=== PATIENT | male | born 1955 | race African-American/Black ===

== ENCOUNTER 2016-12-07 15:48 | Emergency (ER) | payer MEDICARE, MEDICAID ==
[~2016-12-07] VITALS: Ht 172.7 cm; Wt 72.6 kg
[~2016-12-07 15:48] MED LIST: ATENOLOL100 MG ORAL; HYDROCHLOROTHIA25 MG ORAL; HYDROCODON-ACE1 EA13 ORAL; HYDROCODON-ACE1 EA16 ORAL; LEXAPRO10 MG ORAL; NORCO 5-325 TA1 EACH ORAL; NORVIR100 MG ORAL; REYATAZ150 MG ORAL; TRICOR54 MG ORAL; UNK BP MED
[2016-12-07 15:56] VITALS: BP 129/83
[2016-12-07] MEDS ORDERED: TdaP Vaccine 0.5ml Syr IM ONE (16:30)
[2016-12-07] MEDS ORDERED: Methocarbamol 750mg tab ORAL ONE (16:30)
[2016-12-07] MEDS ORDERED: NORCO 5-325 TA1 EAC1 ORAL (17:48)
[2016-12-07] MEDS ORDERED: IBUPROFEN600 MG ORAL (17:48)
[2016-12-07 17:54] VITALS: BP 121/81
[2016-12-07] MEDS ORDERED: NORCO 10-325 T1 EACH ORAL (18:06)
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
--- NOTE | 2016-12-08 10:39 | Diagnostic Imaging Report ---
Indication: Pain Findings: 3 views of the right elbow were obtained. No acute fractures, malalignment, erosions or periostitis are identified. Bone mineralization is within normal limits. Soft tissues are unremarkable. Impression: Negative examination of the elbow.
--- NOTE | 2016-12-08 10:39 | Diagnostic Imaging Report ---
Indication: Pain Findings: 3 views of the left elbow were obtained. No acute fractures, malalignment, erosions or periostitis are identified. Bone mineralization is within normal limits. Soft tissues are unremarkable. Impression: Negative examination of the elbow.
== END 2016-12-07 18:10 | disposition home or self-care (01) ==
LOC: EMR 17:45
DX: S52.022A Displaced fracture of olecranon process without intraarticular extension of left ulna, initial encounter for closed fracture (principal); S41.111A Laceration without foreign body of right upper arm, initial encounter; Y08.89XA Assault by other specified means, initial encounter; Y92.9 Unspecified place or not applicable; I10 Essential (primary) hypertension; Z23 Encounter for immunization
CPT/HCPCS: 29105; 90471; 90715

== ENCOUNTER 2017-05-13 07:49 | Emergency (ER) | payer MEDICARE, MEDICAID ==
[~2017-05-13] VITALS: Ht 172.7 cm; Wt 72.6 kg
[~2017-05-13 07:49] MED LIST changes: +IBUPROFEN600 MG ORAL; +NORCO 10-325 T1 EACH ORAL; +NORCO 5-325 TA1 EAC1 ORAL
[2017-05-13 08:11] VITALS: BP 151/92
[2017-05-13] MEDS ORDERED: PERMETHRIN60 GM TOPIC (08:26)
[2017-05-13 08:33] VITALS: BP 151/92
--- NOTE | 2017-05-13 13:44 | Emergency Room Report ---
History of Present Illness General Chief Complaint: Skin Rash/Abscess Source: Patient Present Illness HPI 62-year-old male presents to ED for evaluation. Patient states he is a rash on his hands the last several days. It is very itchy. Denies any pain. Patient states his girlfriend has the same rash and was told it is scabies. Was prescribed permethrin and states symptoms are resolving. Patient is here for treatment. No aggravating relieving factors. Denies any other associated symptoms Allergies: Coded Allergies: No Known Allergies (Unverified , 05/27/13) Patient History Past Medical History: HTN Past Surgical History: none Pertinent Family History: none Social History: Denies: smoking, alcohol use, drug use Immunizations: UTD Reviewed Nursing Documentation: PMH: Agreed, PSxH: Agreed Nursing Documentation-PMH Hx Cardiac Problems: No - hiv + Hx Hypertension: Yes Hx Pacemaker: No Hx Asthma: No Hx COPD: No Hx Diabetes: No Hx Cancer: No Hx Gastrointestinal Problems: No Hx Dialysis: No Hx Neurological Problems: No Hx Cerebrovascular Accident: No Hx Seizures: No Review of Systems All Other Systems: negative except mentioned in HPI Physical Exam Vital Signs Date Time Temp Pulse Resp B/P (MAP) Pulse Ox O2 Delivery O2 Flow Rate FiO2 05/13/17 07:55 98.1 56 16 151/92 98 Room Air Sp02 EP Interpretation: reviewed, normal General Appearance: no apparent distress, alert, GCS 15, non-toxic Head: normocephalic, atraumatic Eyes: bilateral eye normal inspection, bilateral eye PERRL ENT: hearing grossly normal, normal pharynx, no angioedema, normal voice Neck: full range of motion, supple/symm/no masses Respiratory: chest non-tender, lungs clear, normal breath sounds, speaking full sentences Cardiovascular #1: regular rate, rhythm, no edema Cardiovascular #2: 2+ carotid (R), 2+ carotid (L), 2+ radial (R), 2+ radial (L) , 2+ dorsalis pedis (R), 2+ dorsalis pedis (L) Gastrointestinal: normal bowel sounds, non tender, soft, non-distended, no guarding, no rebound Rectal: deferred Genitourinary: normal inspection, no CVA tenderness Musculoskeletal: back normal, gait/station normal, normal range of motion, non- tender Neurologic: alert, oriented x3, responsive, motor strength/tone normal, sensory intact, speech normal Psychiatric: judgement/insight normal, memory normal, mood/affect normal, no suicidal/homicidal ideation Reflexes: 3+ bicep (R), 3+ bicep (L), 3+ tricep (R), 3+ tricep (L), 3+ knee (R) , 3+ knee (L) Skin: normal color, no rash, warm/dry, well hydrated Lymphatic: no adenopathy Medical Decision Making Diagnostic Impression: Primary Impression: Scabies ER Course Hospital Course 62-year-old male presents to ED with rash to hands Differential diagnoses include: Cellulitis, dermatitis, insect bite, abscess Clinical course Patient placed on stretcher. After initial history, physical exam reveals an elderly male in no acute distress. On exam there are of the linear excoriations noted to bilateral hands. Consistent with a history of scabies provided by the patient We will treat with permethrin. Patient is requesting refill of his pain medication. States he has significant arthritis in both knees. Usually takes [place] one to 2 tablets daily. Review CURES and patient has multiple prescriptions filled on a monthly basis. I explained that I cannot provide any additional medication and he needs to followup with his PMD and/or pain management. Patient understands Diagnosis - scabies stable and discharged to home with prescription for Permethin. Instructed to followup with PMD. Instructed return to ED if symptoms recur or worsen Last Vital Signs Date Time Temp Pulse Resp B/P (MAP) Pulse Ox O2 Delivery O2 Flow Rate FiO2 05/13/17 08:33 56 19 151/92 98 Room Air 05/13/17 08:11 98.1 Status: improved Disposition: HOME, SELF-CARE Condition: Stable Scripts Permethrin* (ELIMITE*) 60 Gm Cream..g. 1 APPLIC TOPIC ONCE, #1 TUBE 0 Refills Apply cream from head to toe; leave on for 8-14 hours before washing off with water Prov: ILANA BARNES M.D. 05/13/17 Patient Instructions: Contact Precautions, [id number] ILANA BARNES M.D. May 13, 2017 13:44
== END 2017-05-13 08:39 | disposition home or self-care (01) ==
LOC: EMR 08:20
DX: B86 Scabies (principal); I10 Essential (primary) hypertension
CPT/HCPCS: 99283

== ENCOUNTER 2017-05-24 01:28 | Emergency (ER) | payer MEDICARE, MEDICAID ==
[~2017-05-24] VITALS: Ht 172.7 cm; Wt 72.6 kg
[~2017-05-24 01:28] MED LIST changes: +PERMETHRIN60 GM TOPIC
[2017-05-24] MEDS ORDERED: Morphine Sulfate 4mg/ml Inj IVP ONE (02:30)
[2017-05-24] MEDS ORDERED: Famotidine 20 MG/ 2ML VIAL IVP ONE (02:30)
[2017-05-24] MEDS ORDERED: Tubing IV Cassette IV ONE (03:06)
[2017-05-24 03:21] LABS: APPEARANCE,URINE CLEAR; KETONES,URINE NEGATIVE (NEGATIVE); LEUKOCYTE ESTERASE ,URINE NEGATIVE (NEGATIVE); NITRITE,URINE NEGATIVE (NEGATIVE); PH,URINE 5 (4.5-8.0); PROTEIN,URINE NEGATIVE (NEGATIVE); UROBILINOGEN,URINE NORMAL MG/DL (0.0-1.0)
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
[2017-05-24 03:26] LABS: PROTHROMBIN TIME 10.6 SEC (9.30-11.50)
[2017-05-24 03:34] LABS: ALBUMIN/GLOBULIN RATIO 1.3 (1.0-2.7); CALCIUM 10.2 mg/dL (8.6-10.2); CREATININE 1.6 mg/dL (0.7-1.2); GLOMERULAR FILTRATION RATE 53.3 mL/min (>60); POTASSIUM 3.7 mEQ/L (3.4-4.9); TOTAL PROTEIN 8.1 g/dL (6.6-8.7)
[2017-05-24 03:35] LABS: BASOPHILS % (AUTO) 0.8 % (0.0-2.0); EOSINOPHILS % (AUTO) 0.7 % (0.0-3.0); LYMPHOCYTES % (AUTO) 20.6 % (20.0-45.0); MEAN CORPUSCULAR HEMOGLOBIN 33.7 PG (27.0-31.0); MEAN CORPUSCULAR HGB CONC 34.1 G/DL (32.0-36.0); MEAN CORPUSCULAR VOLUME 99 FL (80-99); MEAN PLATELET VOLUME 8.2 FL (6.5-10.1); MONOCYTES % (AUTO) 7.6 % (1.0-10.0); NEUTROPHILS % (AUTO) 70.3 % (45.0-75.0); PLATELET COUNT 233 K/UL (150-450); RED BLOOD COUNT 4.38 M/UL (4.70-6.10); RED CELL DISTRIBUTION WIDTH 11.6 % (11.6-14.8); WHITE BLOOD COUNT 10.3 K/UL (4.8-10.8)
[2017-05-24 04:03] VITALS: BP 157/96
[2017-05-24] MEDS ORDERED: TRAMADOL HCL50 MG ORAL (05:41)
[2017-05-24] MEDS ORDERED: ZOFRAN ODT4 MG ORAL (05:41)
[2017-05-24] MEDS ORDERED: PEPCID20 MG ORAL (05:41)
[2017-05-24 05:50] LABS: BILIRUBIN,DIRECT 0.2 mg/dL (0.1-0.3)
[2017-05-24 05:56] LABS: TROPONIN I < 0.30 ng/mL (<=0.30)
[2017-05-24 06:08] VITALS: BP 151/74
[2017-05-24 06:09] VITALS: BP 157/96
--- NOTE | 2017-05-24 11:12 | Diagnostic Imaging Report ---
Indication: Dyspnea Comparison: None A single view chest radiograph was obtained. Findings: Lungs are clear. The heart is mildly enlarged. Bones are osteopenic. Sternotomy noted. Surgical clips in the right upper quadrant of the abdomen noted. Impression: No acute disease
--- NOTE | 2017-05-24 11:12 | Diagnostic Imaging Report ---
Indication: Abdominal pain Comparison: None Single view of the abdomen obtained Findings: Bowel gas pattern is nonspecific. No mass, ectopic calcifications, or abnormal gas collections are identified. The bones are unremarkable. Impression: No acute findings
--- NOTE | 2017-05-27 16:00 | Cardiology Report ---
APPROVED REPORT EKG Measurement Heart [id number] Normal sinus rhythm Possible Left atrial enlargement Left axis deviation Inferior infarct, age undetermined Possible Anterior infarct, age undetermined Abnormal ECG
== END 2017-05-24 06:10 | disposition home or self-care (01) ==
LOC: EMR 02:14
DX: R10.9 Unspecified abdominal pain (principal); F19.10 Other psychoactive substance abuse, uncomplicated; R07.9 Chest pain, unspecified; N28.9 Disorder of kidney and ureter, unspecified; I10 Essential (primary) hypertension
CPT/HCPCS: 36415; 71010; 74000; 80053; 80300; 81003; 82248; 83690; 84484; 85025; 85610; 85730; 93005; 96361; 96374; 96375; 99284; G0480; J2270; J2405; S0028; 80329